=== PATIENT | male | born 1975 | race African-American/Black ===

== ENCOUNTER 2025-11-05 13:27 | Emergency (ER) | payer SELFPAY ==
[~2025-11-05] VITALS: Ht 172.7 cm; Wt 83.0 kg
[2025-11-05 13:30] VITALS: BP 138/88; TEMP 36.7; O2SAT 99
[2025-11-05 13:33] VITALS: PULSE 85; RESP 16; O2SAT 100
[2025-11-05] MEDS ORDERED: P50 MT (15:33)
== END 2025-11-05 15:44 | disposition home or self-care (01) ==
LOC: ER 13:27
DX: G51.0 Bell's palsy (principal)
CPT/HCPCS: 93005; 99283